=== PATIENT | male | born 1935 | race Caucasian/White ===

== ENCOUNTER 2020-06-20 14:16 | Inpatient (IN) | payer MEDICARE, OTHER ==
[~2020-06-20] VITALS: Ht 177.8 cm; Wt 104.0 kg
[2020-06-20 15:01] LABS: Urine Bacteria NONE SEEN /hpf (None Seen); Urine Blood 2+ /uL (Negative); Urine Mucus FEW (None Seen); Urine Specific Gravity 1.025 (1.001-1.035); Urine WBC 17 /hpf (0 - 3)
[2020-06-20 15:20] LABS: Basophils # (auto) 0 10 ^3/uL (0-0.2); Basophils % (auto) 0.5 % (0.0-2.0); Eosinophils # (auto) 0.3 10 ^3/uL (0-0.8); Eosinophils % (auto) 3.4 % (0.0-7.0); Hematocrit 42.2 % (41.0-53.0); Lymphocytes # (auto) 0.8 10 ^3/uL (0.4-5.4); Lymphocytes % (auto) 9.8 % (10.0-50.0); Mean Corpuscular Hemoglobin 31.2 pg (28.0-32.0); Mean Corpuscular Hgb Conc. 33.2 g/dL (32.0-36.0); Mean Corpuscular Volume 94.1 fL (80.0-100.0); Monocytes # (auto) 0.8 10 ^3/uL (0-1.3); Monocytes % (auto) 9.7 % (0.0-12.0); Neutrophils # (auto) 6.4 10 ^3/uL (1.6-8.6); Neutrophils % (auto) 76.6 % (37.0-80.0); Platelet Count (auto) 160 10^3/uL (140-450); Red Blood Cells 4.48 10^6/uL (4.5-5.90); Red Cell Distribution Width 14.1 % (11.8-14.3); White Blood Cell 8.4 10^3/uL (4.4-10.8)
[2020-06-20 15:41] LABS: Albumin 2.8 g/dL (3.4-5.0); Calcium 8.3 mg/dL (8.5-10.1)
[2020-06-20 15:44] LABS: BUN/Creatinine Ratio 23.2; Bilirubin, Total 8.9 mg/dL (0.2-1.0); Total Protein 6.4 g/dL (6.4-8.2)
[2020-06-20 18:01] LABS: INR 0.97 (0.9-1.15); Partial Thromboplastin Time 27.1 sec (23.0-31.2)
[2020-06-20] MEDS ORDERED: DOCUSATE SOD 100 MG CAP PO PRN (21:15)
[2020-06-20] MEDS ORDERED: HYDROcodone-ACET 5/325MG TAB PO PRN (21:15)
[2020-06-20] MEDS ORDERED: ONDANSETRON HCL 4 MG/2 ML VIAL IV PRN (21:15)
[2020-06-20] MEDS ORDERED: ACETAMINOPHEN 325 MG TAB PO PRN (21:15)
[2020-06-20] MEDS: SODIUM CHLORIDE 0.9% 1,000 ML IV SCH (21:24)
[2020-06-20] MEDS: cefTRIAXone 1GM/50ML D5W 50 ML IV SCH (21:24)
--- NOTE | 2020-06-20 23:00 | NUR ---
ASSUMED PATIENT CARE [facility] admit from [facility] admitted to [facility]. Patient oriented to Cassidy Fitzgerald, primary RN, unit, room, bed, and unit policies regarding patient care and visiting hours. Patient weighed by bed scale and encouraged to call if they need something. DISCUSSED POC WITH PATIENT. All questions and concerns addressed, patient verbalized understanding.
[2020-06-20 23:30] VITALS: BP 133/67
[2020-06-20] MEDS ORDERED: ASPI-543 PO (23:42)
--- NOTE | 2020-06-21 02:00 | NUR ---
PATIENT UP TO BATHROOM. STEADY GAIT NOTED. PATIENT REPORTS TINGED URINE; ASKED PATIENT TO NO FLUSH THE TOILET. WILL CONTINUE TO MONITOR.
[2020-06-21 05:00] VITALS: BP 125/67
[2020-06-21 05:39] LABS: Basophils # (auto) 0 10 ^3/uL (0-0.2); Basophils % (auto) 0.6 % (0.0-2.0); Eosinophils # (auto) 0.2 10 ^3/uL (0-0.8); Eosinophils % (auto) 3.9 % (0.0-7.0); Hematocrit 44.9 % (41.0-53.0); Hemoglobin 14.7 g/dL (13.5-17.5); Lymphocytes # (auto) 0.7 10 ^3/uL (0.4-5.4); Lymphocytes % (auto) 12.5 % (10.0-50.0); Mean Corpuscular Hemoglobin 31.1 pg (28.0-32.0); Mean Corpuscular Hgb Conc. 32.8 g/dL (32.0-36.0); Mean Corpuscular Volume 94.8 fL (80.0-100.0); Monocytes # (auto) 0.6 10 ^3/uL (0-1.3); Neutrophils # (auto) 4.4 10 ^3/uL (1.6-8.6); Platelet Count (auto) 165 10^3/uL (140-450); Red Blood Cells 4.74 10^6/uL (4.5-5.90); Red Cell Distribution Width 13.8 % (11.8-14.3)
[2020-06-21 05:59] LABS: Calcium 8.6 mg/dL (8.5-10.1); Potassium 3.5 mmol/L (3.5-5.1)
[2020-06-21] MEDS: SODIUM CHLORIDE 0.9% 1,000 ML IV SCH ×2 (06:37→16:36)
--- NOTE | 2020-06-21 07:05 | NUR ---
CLOSING NOTE- NOC SHIFT PATIENT IS ALERT AND ORIENTED X4. PATIENT IS AWARE HE IS NPO. NO S/SX OF DISTRESS, SOB OR PAIN. WILL ENDORSE PATIENT CARE TO DAY SHIFT RN.
--- NOTE | 2020-06-21 07:50 | NUR ---
Opening shift note Assumed care of patient from NOC RN. Patient is AOx4, so s/s of SOB or distress noted. Bed is in lowest locked position, side rails up x2, and call light is within reach. Educated patient on how to use call light and patient verbalized understanding. Updated patient on plan of care and patient verbalized understanding. Will continue to monitor q1hr and PRN.
[2020-06-21 09:00] VITALS: BP 136/66
[2020-06-21] MEDS: cefTRIAXone 1GM/50ML D5W 50 ML IV SCH (10:21)
[2020-06-21] MEDS: TAMSULOSIN HYDROCHLORIDE 0.4 MG CAP PO SCH (10:27)
[2020-06-21] MEDS: FINASTERIDE 5 MG TAB PO SCH (10:28)
--- NOTE | 2020-06-21 12:20 | NUR ---
Physician rounding Dr. Fernandez at bedside. MD updated patient on plan of care, and patient verbalized understanding. New order received, per MD patient can be on full liquid diet and advance diet as tolerated. Will follow through, will continue care.
[2020-06-21 13:00] VITALS: BP 138/83
[2020-06-21 17:00] VITALS: BP 127/73
--- NOTE | 2020-06-21 18:38 | NUR ---
SPOKE WITH FAMILY Spoke with patients son Eugene. Updated him on patient status and plan of care, Eugene verbalized understanding.
--- NOTE | 2020-06-21 18:58 | NUR ---
End of shift note Endorsed care to NOC JANINE Johnson. No s/s of distress noted.
[2020-06-21 22:21] VITALS: BP 141/76
[2020-06-22] MEDS: SODIUM CHLORIDE 0.9% 1,000 ML IV SCH ×3 (04:43→21:51)
[2020-06-22 05:09] VITALS: BP 106/63
[2020-06-22 07:21] LABS: Basophils # (auto) 0.1 10 ^3/uL (0-0.2); Basophils % (auto) 1.1 % (0.0-2.0); Eosinophils # (auto) 0.3 10 ^3/uL (0-0.8); Eosinophils % (auto) 6.1 % (0.0-7.0); Hematocrit 40.3 % (41.0-53.0); Hemoglobin 13.6 g/dL (13.5-17.5); Lymphocytes # (auto) 0.7 10 ^3/uL (0.4-5.4); Lymphocytes % (auto) 13.4 % (10.0-50.0); Mean Corpuscular Hemoglobin 31.6 pg (28.0-32.0); Mean Corpuscular Hgb Conc. 33.7 g/dL (32.0-36.0); Mean Corpuscular Volume 93.7 fL (80.0-100.0); Monocytes # (auto) 0.5 10 ^3/uL (0-1.3); Monocytes % (auto) 10.4 % (0.0-12.0); Neutrophils # (auto) 3.4 10 ^3/uL (1.6-8.6); Nucleated Red Blood Cells % 0.1 %; Platelet Count (auto) 173 10^3/uL (140-450); Red Cell Distribution Width 13.9 % (11.8-14.3); White Blood Cell 4.9 10^3/uL (4.4-10.8)
--- NOTE | 2020-06-22 07:40 | NUR ---
Opening shift note Assumed care of patient from NOC RN Apol. Patient is AOx4, so s/s of SOB or distress noted. Bed is in lowest locked position, side rails up x2, and call light is within reach. Educated patient on how to use call light and patient verbalized understanding. Updated patient on plan of care and patient verbalized understanding. Will continue to monitor q1hr and PRN.
[2020-06-22 07:50] LABS: Albumin 2.3 g/dL (3.4-5.0); BUN/Creatinine Ratio 17.4; Calcium 8.2 mg/dL (8.5-10.1); Magnesium 2.3 mg/dL (1.6-2.6); Potassium 3.7 mmol/L (3.5-5.1)
[2020-06-22 07:52] LABS: Bilirubin, Total 9.8 mg/dL (0.2-1.0); Total Protein 5.8 g/dL (6.4-8.2)
--- NOTE | 2020-06-22 08:55 | NUR ---
Physician rounding Dr. Fernandez at bedside, MD updated patient on plan of care. Patient verbalized understanding. New orders received will follow through.
[2020-06-22 09:00] VITALS: BP 93/55
--- NOTE | 2020-06-22 09:40 | NUR ---
Physicians rounding Dr. Fernandez at bedside. updated patient on change of plan of care and patient verbalized understanding. Urology COOLING TOWER OPERATOR at bedside as well. Per COOLING TOWER OPERATOR [place] patient will follow up as out patient for stone removal with Dr. Mejia and will be placed on medications on D/C. Will continue to monitor.
[2020-06-22 09:51] LABS: Acetaminophen < 2.0 ug/mL (10-30); Salicylate < 1.7 mg/dL (2.8-20.0)
[2020-06-22] MEDS: FINASTERIDE 5 MG TAB PO SCH (10:49)
[2020-06-22] MEDS: TAMSULOSIN HYDROCHLORIDE 0.4 MG CAP PO SCH (10:49)
[2020-06-22] MEDS: cefTRIAXone 1GM/50ML D5W 50 ML IV SCH (10:49)
[2020-06-22 13:00] VITALS: BP 110/62
[2020-06-22 13:36] LABS: Hepatitis A Ab IgM Negative; Hepatitis B Core IgM Negative; Hepatitis B Surface Antigen Negative (Negative); Hepatitis C Antibody Negative (Negative)
--- NOTE | 2020-06-22 15:29 | NUR ---
ss consult Patient is requesting advanced directive. Patient has been provided with advanced directive. Addendum: 06/22/20 at 1529 by Fanny MARTÍNEZ Amended: Links added.
[2020-06-22 17:00] VITALS: BP 109/52
--- NOTE | 2020-06-22 18:40 | NUR ---
spoke with family Updated patients son Eugene per patient request. Updated Eugene on plan of care and Eugene verbalized understanding.
--- NOTE | 2020-06-22 19:08 | NUR ---
End of shift note Endorsed care to NOC RN Bety. No s/s of distress noted.
[2020-06-22 22:00] VITALS: BP 139/72
[2020-06-23 05:00] VITALS: BP 135/85
[2020-06-23 06:28] LABS: Basophils # (auto) 0 10 ^3/uL (0-0.2); Basophils % (auto) 1.1 % (0.0-2.0); Eosinophils # (auto) 0.4 10 ^3/uL (0-0.8); Eosinophils % (auto) 9.2 % (0.0-7.0); Hematocrit 38.9 % (41.0-53.0); Hemoglobin 13.1 g/dL (13.5-17.5); Lymphocytes # (auto) 0.9 10 ^3/uL (0.4-5.4); Mean Corpuscular Hemoglobin 31.7 pg (28.0-32.0); Mean Corpuscular Hgb Conc. 33.6 g/dL (32.0-36.0); Mean Corpuscular Volume 94.3 fL (80.0-100.0); Monocytes # (auto) 0.6 10 ^3/uL (0-1.3); Neutrophils # (auto) 2.6 10 ^3/uL (1.6-8.6); Neutrophils % (auto) 57.7 % (37.0-80.0); Nucleated Red Blood Cells % 0.1 %; Platelet Count (auto) 187 10^3/uL (140-450); Red Blood Cells 4.12 10^6/uL (4.5-5.90); Red Cell Distribution Width 14.1 % (11.8-14.3); White Blood Cell 4.5 10^3/uL (4.4-10.8)
[2020-06-23 06:41] LABS: Potassium 3.4 mmol/L (3.5-5.1)
[2020-06-23 06:53] LABS: Albumin 2.5 g/dL (3.4-5.0); BUN/Creatinine Ratio 20.6; Bilirubin, Total 5.4 mg/dL (0.2-1.0); Calcium 8.3 mg/dL (8.5-10.1); Magnesium 2.3 mg/dL (1.6-2.6); Total Protein 5.9 g/dL (6.4-8.2)
[2020-06-23 09:00] VITALS: BP 128/71
[2020-06-23] MEDS: SODIUM CHLORIDE 0.9% 1,000 ML IV SCH (09:04)
[2020-06-23] MEDS: FINASTERIDE 5 MG TAB PO SCH (09:27)
[2020-06-23] MEDS: TAMSULOSIN HYDROCHLORIDE 0.4 MG CAP PO SCH (09:27)
[2020-06-23] MEDS: cefTRIAXone 1GM/50ML D5W 50 ML IV SCH (09:27)
[2020-06-23 13:00] VITALS: BP 115/63
--- NOTE | 2020-06-23 14:24 | NUR ---
Called [facility] spoke with Hannah, she advises she will accept patient onto service for Home safety eval. faxing over packet
--- NOTE | 2020-06-23 14:42 | NUR ---
Packet faxed to [facility], luz Young they are accepting patient. Contacted pt's nurse Chel, advised of info as pt is anxious to d/c home.
[2020-06-23 14:50] VITALS: BP 115/63
--- NOTE | 2020-06-23 15:29 | NUR ---
DISCHARGE INSTRUCTIONS GIVEN TO PT. VERBALIZED UNDERSTANDING. ALL APPROPRIATE PAPERWORK SIGNED. IV REMOVED. PT DISCHARGED HOME WITH FAMILY.
== END 2020-06-23 15:25 | disposition home health service (06) | DRG 693 ==
LOC: ER 14:16 → WEST WING 14:17
PROVIDERS: ADMIT Hospitalist; ATTEND Internal Medicine
DX: N20.0 Calculus of kidney (principal); K85.90 Acute pancreatitis without necrosis or infection, unspecified; B17.9 Acute viral hepatitis, unspecified; K59.00 Constipation, unspecified; R31.0 Gross hematuria; T39.395A Adverse effect of other nonsteroidal anti-inflammatory drugs [NSAID], initial encounter; F10.10 Alcohol abuse, uncomplicated; Y90.9 Presence of alcohol in blood, level not specified; Z82.49 Family history of ischemic heart disease and other diseases of the circulatory system; Y92.89 Other specified places as the place of occurrence of the external cause
CPT/HCPCS: 36415; 71045; 74176; 76705; 80048; 80053; 80074; 80329; 81001; 83690; 83735; 85025; 85610; 85730; 97163; G0378; J0696